=== PATIENT | male | born 2005 | race African-American/Black ===

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

== ENCOUNTER 2025-07-09 18:17 | Emergency (ER) | payer OTHER, SELFPAY ==
--- NOTE | 2025-07-09 18:26 | ED_ITS ---
HPI - General Adult General Chief complaint: Urogenital-Male Stated complaint: STD EXPOSURE Source: patient Mode of arrival: ambulatory Limitations: no limitations History of Present Illness HPI narrative: Pt is a 20 y/o male presenting for STI testing. Pt reports recently learning that his girlfriend tested positive for chlamydia. He states he uses a condom every time. No additional complaints. Related Data Allergies Allergy/AdvReac Type Severity Reaction Status Date / Time No Known Allergies Allergy Verified 09/26/22 07:16 Review of Systems Review of Systems: CONSTITUTIONAL: Denies body aches, fever, chills, or sweats. EYES: Denies visual changes, redness, or discharge. ENT: Denies rhinorrhea, congestion, sore throat, or otalgia. CARDIOVASCULAR: Denies chest pain, palpitations, or edema. RESPIRATORY: Denies cough or dyspnea. GASTROINTESTINAL: Denies abdominal pain, nausea, vomiting, or diarrhea. GENITOURINARY: Denies dysuria or hematuria. SKIN: Denies rash, itching, or wounds. MUSCULOSKELETAL: Denies back pain, joint pain, or myalgia. NEUROLOGIC: Denies headache, numbness, tingling, or weakness. PSYCH: Denies depression or anxiety. All systems reviewed & are unremarkable except as noted in HPI and below Exam Narrative: GENERAL: Well-appearing, well-nourished, and in no acute distress. HEAD: Normocephalic, atraumatic. EYES: EOMI. No redness or drainage. Conjunctivae normal. ENT: Mucous membranes pink and moist. NECK: Normal AROM. Supple. CHEST: No respiratory distress. HEART: Regular rate EXTREMITIES: Normal range of motion. SKIN: Warm, dry, no rash. Capillary refill normal. Normal skin turgor. NEURO: No focal deficits. Alert and oriented x3. Gait steady. PSYCH: Normal affect. No signs of depression or anxiety. Course Course Level of Care: Express Care Visit Vital Signs Vital signs: Vital Signs Temperature 97.9 F 07/09/25 18:30 Pulse Rate 88 07/09/25 18:30 Respiratory Rate 16 07/09/25 18:30 Blood Pressure 133/82 07/09/25 18:30 Pulse Oximetry 100 07/09/25 18:30 Temperature 97.9 F 07/09/25 18:30 Pulse Rate 88 07/09/25 18:30 Respiratory Rate 16 07/09/25 18:30 Blood Pressure 133/82 07/09/25 18:30 Pulse Oximetry 100 07/09/25 18:30 Medical Decision Making MDM Narrative Medical decision making narrative: Discussed elevated blood pressure readings with patient and advised daily BP monitoring and f/u with PCP if persisting. Vital Signs Vital Signs: Vital Signs Temperature 97.9 F 07/09/25 18:30 Pulse Rate 88 07/09/25 18:30 Respiratory Rate 16 07/09/25 18:30 Blood Pressure 133/82 07/09/25 18:30 Pulse Oximetry 100 07/09/25 18:30 Temperature 97.9 F 07/09/25 18:30 Pulse Rate 88 07/09/25 18:30 Respiratory Rate 16 07/09/25 18:30 Blood Pressure 133/82 07/09/25 18:30 Pulse Oximetry 100 07/09/25 18:30 Discharge Plan Discharge Clinical Impression: High risk heterosexual behavior, Exposure to chlamydia, Elevated blood pressure reading in office without diagnosis of hypertension Patient Disposition: Home Condition: Stable Instructions: Antibiotic Form, Chlamydia (ED) Additional Instructions: Go straight to ER should your symptoms become worse or should any new symptoms develop Patient Language: Turkish Prescriptions: New doxycycline hyclate 100 mg capsule 100 mg PO DAILY Qty: 14 0RF No Action benzonatate 100 mg capsule 100 mg PO TID PRN (Reason: cough) Qty: 14 0RF albuterol sulfate 90 mcg/actuation HFA aerosol inhaler 1 puff inhalation QID PRN (Reason: shortness of breath or wheezing) Qty: 6.7 0RF ondansetron 4 mg tablet,disintegrating 4 mg PO Q8H PRN (Reason: nausea and vomiting) Qty: 21 0RF Follow-up/Referrals: PHYSICIAN,ENDOSCOPE TECHNICIAN [Primary Care Provider, Internal Medicine] - 07/10/25 Time of Disposition: 18:27
[2025-07-09 18:30] VITALS: BP 133/82; PULSE 88; RESP 16; TEMP 36.6; O2SAT 100
[2025-07-09] MEDS: cefTRIAXone 500 MG VIAL IM (18:49)
== END 2025-07-09 19:00 | disposition home or self-care (01) ==
PROVIDERS: Emergency Provider Registered Nurse
DX: Z20.2 Contact with and (suspected) exposure to infections with a predominantly sexual mode of transmission (principal); R03.0 Elevated blood-pressure reading, without diagnosis of hypertension; Z72.51 High risk heterosexual behavior
CPT/HCPCS: 87491; 87591; 96372; 99213; G0463; J0696; J2003